=== PATIENT | female | born 1985 | race American Indian/Alaskan Native ===

== ENCOUNTER 2017-11-02 09:14 | Emergency (ER) | payer OTHER ==
[2017-11-02 09:27] VITALS: BP 121/71
[2017-11-02] MEDS ORDERED: PROVENTIL IH ONE (09:37)
--- NOTE | 2017-11-02 09:38 | Emergency Department Report ---
Chief Complaint: Dyspnea/Respdistress Stated Complaint: ASTHMA/DACIA Time Seen by Provider: 11/02/17 09:33 - HPI History of Present Illness: Nasal congestion and productive cough x 3 days, H/O asthma as child; wheezing and SOB since last night; denies recent long distance travels, H/O CA and blood clots and OCP use; no inhalers at home - ROS Review of Systems: Negative except those stated in HPI - Exam Vital Signs: Vital Signs 11/02/17 09:23 Temperature 98.8 F Pulse Rate 122 H Respiratory 26 H Rate Blood Pressure 121/71 O2 Sat by Pulse 99 Oximetry Physical Exam: Pulm - bilateral wheezes present, mild labored breathing Heart - tachycardic, regular rhythm MSE screening note: Focused history and physical exam performed. Due to findings the following was ordered: CXR, nebulizer treatment, steroid Patient to be seen in Main ED by provider ED Disposition for MSE Condition: Stable
--- NOTE | 2017-11-02 10:07 | XRay Report ---
ROUTINE CHEST, TWO VIEWS: HISTORY: Dyspnea, cough. The trachea, heart, mediastinal contour, lung olson and bony thorax are unremarkable. IMPRESSION: Unremarkable chest x-ray.
[2017-11-02 11:02] LABS: Basophils % (Auto) 1.2 % (0.0-1.8); Eosinophils % (Auto) 0.9 % (0.0-4.3); Hematocrit 44.4 % (30.3-42.9); Mean Corpuscular HGB Conc 34 % (30-34); Mean Corpuscular Hemoglobin 35 pg (28-32); Mean Corpuscular Volume 102 fl (79-97); Platelet Count 236 K/mm3 (140-440); Red Blood Count 4.36 M/mm3 (3.65-5.03); Red Cell Distribution Width 13.8 % (13.2-15.2); White Blood Count 10.8 K/mm3 (4.5-11.0)
[2017-11-02 11:24] LABS: Alanine Aminotransferase 11 units/L (7-56); Albumin 4.5 g/dL (3.9-5); Albumin/Globulin Ratio 1.2 %; Alkaline Phosphatase 59 units/L (35-129); Anion Gap 22 mmol/L; BUN/Creatinine Ratio 8; Blood Urea Nitrogen 5 mg/dL (7-17); Calcium 9.1 mg/dL (8.4-10.2); Carbon Dioxide 20 mmol/L (22-30); Chloride 101.8 mmol/L (98-107); Glucose 150 mg/dL (65-100); Potassium 3.3 mmol/L (3.6-5.0); Sodium 140 mmol/L (137-145); Total Protein 8.2 g/dL (6.3-8.2)
[2017-11-02] MEDS ORDERED: NACL 0.9% 1000 ML 0 ML ONE (17:20)
== END 2017-11-02 21:41 | disposition left against medical advice (07) ==
LOC: ED 09:14
DX: Z53.21 Procedure and treatment not carried out due to patient leaving prior to being seen by health care provider (principal)
CPT/HCPCS: 36415; 71020; 80053; 85025; 85379; 93005; 93010; 94640; J2930; J7030

== ENCOUNTER 2018-09-04 18:39 | Emergency (ER) | payer OTHER ==
[2018-09-04] MEDS ORDERED: ULTRAM PO ONE (23:37)
[2018-09-05 00:06] VITALS: BP 132/84
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
== END 2018-09-05 02:44 | disposition home or self-care (01) ==
LOC: ED 18:39
DX: S16.1XXA Strain of muscle, fascia and tendon at neck level, initial encounter (principal); S39.012A Strain of muscle, fascia and tendon of lower back, initial encounter; S20.211A Contusion of right front wall of thorax, initial encounter; M25.512 Pain in left shoulder; J45.909 Unspecified asthma, uncomplicated; Z88.6 Allergy status to analgesic agent; Z90.13 Acquired absence of bilateral breasts and nipples; V87.7XXA Person injured in collision between other specified motor vehicles (traffic), initial encounter; Y93.89 Activity, other specified; Y92.488 Other paved roadways as the place of occurrence of the external cause; Y99.8 Other external cause status
CPT/HCPCS: 71046; 72040; 72100